=== PATIENT | male | born 1940 | race African-American/Black ===

== ENCOUNTER 2017-05-14 15:27 | Inpatient (IN) | payer OTHER ==
[~2017-05-14] VITALS: Ht 180.3 cm; Wt 101.4 kg
--- NOTE | ~2017-05-14 | EKG ---
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1940 Requested By: Stew Barajas Order Number: [id number] MD: Marquise Maynard Measurements Intervals [place] Rate: 65 P: 26 SC: 168 QRS: -44 QRSD: 106 T: -43 QT: 456 QTc: 475 Interpretive Statements Sinus rhythm Multiple ventricular premature complexes Inferior infarct, old Compared to ECG 05/11/2008 21:47:54 Ventricular premature complex(es) now present Electronically Signed On 05-16-2017 13:16:58 CDT by Marquise Maynard [email or web address] <ELECTRONICALLY SIGNED> By: Marquise Maynard MD, [facility] 05/16/17 1316 1548 1548 Marquise Maynard MD, [facility] /EPI
--- NOTE | ~2017-05-14 | 2DMMODE ---
[facility] [address] [place] [address] 2 D/M-MODE ECHOCARDIOGRAM Name: LAURENT THOAMS Room #: 217-P [facility] IN ..#: [id number] Admission: 05/14/17 Attend Phys: Kamlesh Hawk Discharge: Date of : 44 Date of Service: 05/15/172001 Report #: [id number] THIS REPORT FOR: //name// ADDENDUM APPROVED REPORT Study performed: 05/15/2017 11:48:43 EXAM: Comprehensive 2D, Doppler, and color-flow Echocardiogram Patient Location: Bedside Room #: 217 Status: on-call Other Information Study Quality: Adequate Risk Factors: Cardiac Risk Factors: Smoking Indications Dyspnea Syncope 2D Dimensions LVEF(%): 35.97 (>50%) IVSd: 13.26 (7-11mm) LVOT Diam: 21.00 (18-24mm) LVDd: 48.54 mm PWd: 13.07 (7-11mm) Ascending Ao: 33.35 (22-36mm) LVDs: 40.16 (25-40mm) Aortic Root: 32.56 mm Guo's LVEF: 35.97 % Volumes Left Atrial Volume (Systole) Single Plane 4CH: 51.05 mL Single Plane 2CH: 56.51 mL LA ESV Index: 29.00 mL/m2 Aortic Valve AoV Peak Qasim.: 1.20 m/s AO Peak Gr.: 5.95 mmHg LVOT Max P.57 mmHg LVOT Max V: 0.80 m/s LUIZ Vmax: 2.26 cm2 Mitral Valve E/A Ratio: 0.7 MV Decel. Time: 327.[address] [facility] [address] [place] [address] 2 D/M-MODE ECHOCARDIOGRAM Name: LAURENT THOMAS Room #: 217-[facility] IN [facility]#: [id number] Admission: 05/14/17 Attend Phys: Kamlesh Lomeli [facility] Discharge: Date of : 44 Date of Service: 05/15/172001 Report #: [id number] E Max Qasim.: 0.56 m/s MV A Qasim.: 0.81 m/s MV PHT: 94.84 ms IVRT: 50.75 ms Pulmonary Valve PV Peak Qasim.: 0.77 m/s PV Peak Gr.: 2.37 mmHg Tricuspid Valve RAP Estimate: 5.00 mmHg Left Ventricle The left ventricle is normal size. Mild concentric left ventricular hypertrophy. Left ventricular systolic function is decreased.worse in inf inf septal wall 35 -40% Grade I - abnormal relaxation pattern. Right Ventricle The right ventricle is normal size. The right ventricular systolic function is normal. Atria The left atrium size is normal. Right atrium is borderline dilated. Aortic Valve The aortic valve is normal in structure. No aortic regurgitation is present. There is no aortic valvular stenosis. Mitral Valve The mitral valve is normal in structure. Mild mitral regurgitation. No evidence of mitral valve stenosis. Tricuspid Valve The tricuspid valve is normal in structure. There is no tricuspid valve regurgitation noted. Pulmonic Valve The pulmonary valve is normal in structure. There is no pulmonic valvular regurgitation. Great Vessels The aortic root is normal in size. IVC is normal in size and collapses with >50% inspiration Pericardium [facility] [address] [place] [address] 2 D/M-MODE ECHOCARDIOGRAM Name: LAURENT THOMAS Room #: 217-[facility] IN .R.#: [id number] Admission: 05/14/17 Attend Phys: Kamlesh Hawk Discharge: Date of : 44 Date of Service: 05/15/172001 Report #: [id number] There is no pericardial effusion. <Conclusion> The left ventricle is normal size. Mild concentric left ventricular hypertrophy. Left ventricular systolic function is decreased.worse in inf inf septal wall 40 -45% Grade I - abnormal relaxation pattern. The left atrium size is normal. Right atrium is borderline dilated. The aortic valve is normal in structure. Mild mitral regurgitation. There is no tricuspid valve regurgitation noted. There is no pericardial effusion. 35 -40% 35 -40% <ELECTRONICALLY SIGNED> By: Cabrera Maldonado MD, [facility] 05/15/172001 01 01 Cabrera Maldonado MD, FACC /INF
[~2017-05-14 15:27] MED LIST: COLACE100 MG PO
[2017-05-14 15:30] VITALS: BP 120/56
[2017-05-14 15:53] LABS: HEMOGLOBIN 15.2 gm/dL (14.0-18.0); MCH 30.5 pg (26.0-34.0); MCHC 33.7 g/dL (28.0-37.0); MCV 90.5 fL (80.0-100.0); RBC 4.97 mil/uL (4.50-6.00); RDW 14.3 % (10.5-14.5); WBC 6.4 thou/uL (4.0-11.0)
[2017-05-14 16:04] LABS: ANION GAP 6 mmol/L (7-16); BUN 10 mg/dL (7-18); CALCIUM 8.6 mg/dL (8.5-10.1); CHLORIDE 105 mmol/L (98-107); CO2 27 mmol/L (21-32); CREATININE 1.2 mg/dL (0.7-1.3); GLUCOSE 104 mg/dL (74-106); POTASSIUM 4.5 mmol/L (3.5-5.1); SODIUM 138 mmol/L (136-145)
[2017-05-14 16:07] LABS: APTT 26.6 Seconds (24.5-32.8); INR 1.1
[2017-05-14 16:12] LABS: TROPONIN-I < 0.04 ng/mL (<0.04-0.07)
[2017-05-14 18:21] VITALS: BP 147/81
[2017-05-14 19:19] VITALS: BP 151/87
[2017-05-14] MEDS ORDERED: GABAPENTIN 100100 MG PO (20:11)
[2017-05-14] MEDS ORDERED: CHILDREN'S ASPI81 M1 PO (20:12)
[2017-05-14 20:50] VITALS: BP 138/79
[2017-05-15] VITALS: BP 134/81
[2017-05-15 01:59] LABS: ANION GAP 7 mmol/L (7-16); BUN 8 mg/dL (7-18); CALCIUM 8.4 mg/dL (8.5-10.1); CHLORIDE 104 mmol/L (98-107); CO2 29 mmol/L (21-32); CREATININE 1.1 mg/dL (0.7-1.3); GLUCOSE 109 mg/dL (74-106); POTASSIUM 3.9 mmol/L (3.5-5.1); SODIUM 140 mmol/L (136-145)
[2017-05-15 02:06] LABS: ALBUMIN 2.9 g/dL (3.4-5.0); PHOSPHORUS 3.1 mg/dL (2.5-4.9); TROPONIN-I < 0.04 ng/mL (<0.04-0.07)
[2017-05-15 03:49] VITALS: BP 143/86
[2017-05-15] MEDS ORDERED: FISH OIL 1,001000 M2 PO (07:28)
[2017-05-15] MEDS ORDERED: VITAMIN D310000 UNI1 PO (07:29)
[2017-05-15 08:00] VITALS: BP 147/84
[2017-05-15 11:02] VITALS: BP 108/50
[2017-05-15 16:00] VITALS: BP 122/73
[2017-05-15 19:29] VITALS: BP 116/81
[2017-05-16 03:12] VITALS: BP 135/86
[2017-05-16 08:54] VITALS: BP 129/75
[2017-05-16 10:04] VITALS: BP 129/75
[2017-05-16 11:42] LABS: CHOLESTEROL 157 mg/dL (<200); HDL CHOLESTEROL 32 mg/dL (>40); LDL CHOLESTEROL 110 mg/dL (<100); TC:HDL 4.9 Ratio (Not establshd); TRIGLYCERIDE 76 mg/dL (<150); VLDL 15 mg/dL (<40)
[2017-05-16 12:30] VITALS: BP 129/75
[2017-05-16 16:29] VITALS: BP 135/100
[2017-05-16 19:45] VITALS: BP 123/79
[2017-05-17 03:57] VITALS: BP 140/99; BP 154/89
[2017-05-17 08:03] VITALS: BP 110/67
[2017-05-17 12:48] VITALS: BP 131/79
[2017-05-17 20:45] VITALS: BP 128/57
[2017-05-17 20:58] VITALS: BP 128/57
[2017-05-18] VITALS (7 sets, daily range): BP systolic 95–124; BP diastolic 47–67
[2017-05-18] MEDS ORDERED: CARVEDILOL3.125 MG PO (09:17)
[2017-05-18] MEDS ORDERED: COZAAR 25 MG TA25 M1 PO (09:17)
[2017-05-18] MEDS ORDERED: LIPITOR 20 MG T20 M1 PO (09:17)
== END 2017-05-18 16:16 | disposition home health service (06) | DRG 312 ==
LOC: ER 15:27 → EROBS 17:41 → 2N 17:41
PROVIDERS: Emergency Medicine; Hospitalist; Internal Medicine Cardiovascular Disease
DX: R55 Syncope and collapse (principal); I42.9 Cardiomyopathy, unspecified; I50.20 Unspecified systolic (congestive) heart failure; M19.90 Unspecified osteoarthritis, unspecified site; F17.210 Nicotine dependence, cigarettes, uncomplicated; F12.90 Cannabis use, unspecified, uncomplicated; Z60.2 Problems related to living alone; E78.00 Pure hypercholesterolemia, unspecified; I11.0 Hypertensive heart disease with heart failure; F03.90 Unspecified dementia, unspecified severity, without behavioral disturbance, psychotic disturbance, mood disturbance, and anxiety; Z79.82 Long term (current) use of aspirin; Z79.899 Other long term (current) drug therapy; Z71.6 Tobacco abuse counseling
CPT/HCPCS: 10081

== ENCOUNTER 2017-06-01 13:40 | Inpatient (IN) | payer OTHER ==
[~2017-06-01] VITALS: Ht 180.3 cm; Wt 101.2 kg
--- NOTE | ~2017-06-01 | EEG ---
[facility] [place] [address] ELECTROENCEPHALOGRAM Name: LAURENT THOMAS Gonzales Room #: 211-P [facility] IN .R.#: [id number] Admission: 06/01/17 Attend Phys: Arnol Irby DO Discharge: 06/03/17 Date of : 44 Report #: [id number] THIS REPORT FOR: //name// CC: Arnol Bella DATE OF SERVICE: 06/03/2017 This patient is being evaluated for syncope. EEG was done by placing the electrodes by standard 10-20 system of electrode placement. Both referential and sequential montages were used for recording. Background activity in this patient's EEG is about 10 Hz and 25 microvolts. This is symmetrical activity. The patient goes to sleep that is associated with bilaterally symmetrical sleep spindle and vertex sharp waves. Throughout the record, no active epileptiform activity was noticed. IMPRESSION: This patient's EEG is within normal limits. Thank you very much for this referral. By: 1859 42 Morales Peralta MD /nt
--- NOTE | ~2017-06-01 | EKG ---
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1940 Requested By: Stew Barajas Order Number: [id number] MD: Marquise Maynard Measurements Intervals [place] Rate: 60 P: 15 W[place]: 148 QRS: -37 QRSD: 103 T: -48 QT: 429 QTc: 429 Interpretive Statements Sinus rhythm Left axis deviation Anteroseptal infarct, old Nonspecific T abnormalities, inferior and lateral lds Compared to ECG 05/14/2017 15:48:58 Ventricular premature complex(es) no longer present Electronically Signed On 06-02-2017 16:57:40 CDT by Marquise Maynard [email or web address] <ELECTRONICALLY SIGNED> By: Marquise Maynard MD, [facility] 06/02/17 1657 1359 1359 Marquise Maynard MD, [facility] /EPI
[~2017-06-01 13:40] MED LIST changes: +CARVEDILOL3.125 MG PO; +CHILDREN'S ASPI81 M1 PO; +COZAAR 25 MG TA25 M1 PO; +FISH OIL 1,001000 M2 PO; +GABAPENTIN 100100 MG PO; +LIPITOR 20 MG T20 M1 PO; +VITAMIN D310000 UNI1 PO
[2017-06-01 13:41] VITALS: BP 116/65
[2017-06-01 14:08] LABS: HEMATOCRIT 41.6 % (42.0-52.0); MCHC 33.5 g/dL (28.0-37.0); MCV 89.4 fL (80.0-100.0); RBC 4.66 mil/uL (4.50-6.00); RDW 13.8 % (10.5-14.5); WBC 6.5 thou/uL (4.0-11.0)
[2017-06-01 14:11] LABS: ANION GAP 4 mmol/L (7-16); BUN 10 mg/dL (7-18); CALCIUM 8.6 mg/dL (8.5-10.1); CHLORIDE 105 mmol/L (98-107); CO2 31 mmol/L (21-32); CREATININE 1.1 mg/dL (0.7-1.3); GLUCOSE 116 mg/dL (74-106); POTASSIUM 5.1 mmol/L (3.5-5.1); SODIUM 140 mmol/L (136-145)
[2017-06-01 14:22] LABS: APTT 26.6 Seconds (24.5-32.8); INR 1.1; PROTIME 10.8 Seconds (9.3-11.4); TROPONIN-I < 0.04 ng/mL (<0.04-0.07)
[2017-06-01 16:36] VITALS: BP 116/65
[2017-06-01 17:28] VITALS: BP 124/83
[2017-06-01 19:08] VITALS: BP 125/75
[2017-06-01] MEDS ORDERED: DULCOLAX5 MG PO (20:51)
[2017-06-01 23:03] VITALS: BP 118/54
[2017-06-02] VITALS (8 sets, daily range): BP systolic 116–145; BP diastolic 68–89
[2017-06-02 03:06] LABS: ABSOLUTE NEUTROPHILS 3.6 thou/uL (1.4-8.2); BASOPHILS 0.4 % (0.0-2.0); EOSINOPHILS 3.2 % (0.0-3.0); HEMATOCRIT 42.3 % (42.0-52.0); HEMOGLOBIN 13.9 gm/dL (14.0-18.0); LYMPHOCYTES 27.6 % (24.0-44.0); MCH 29.5 pg (26.0-34.0); MCHC 32.9 g/dL (28.0-37.0); MCV 89.6 fL (80.0-100.0); PLATELET COUNT 250 thou/uL (150-400); POLYS 57.8 % (36.0-66.0); RBC 4.72 mil/uL (4.50-6.00); RDW 13.3 % (10.5-14.5); WBC 6.3 thou/uL (4.0-11.0)
[2017-06-02 03:08] LABS: CALCIUM 8.6 mg/dL (8.5-10.1); CREATININE 1.1 mg/dL (0.7-1.3); POTASSIUM 4.3 mmol/L (3.5-5.1)
[2017-06-02 03:13] LABS: MANUAL DIFF NO
[2017-06-02 09:37] LABS: FOLIC ACID 4.6 ng/mL (8.6-58.9)
[2017-06-02 14:12] LABS: FREE T4 1.12 ng/dL (0.82-1.77)
[2017-06-03] VITALS (7 sets, daily range): BP systolic 106–130; BP diastolic 64–76
[2017-06-03 01:11] LABS: GLYCOHEMOGLOBIN (HGB A1C) 5.2 % (4.8-5.6)
[2017-06-03] MEDS ORDERED: FOLIC ACID1 MG PO (10:04)
[2017-06-03] MEDS ORDERED: B-12500 MCG PO (10:04)
[2017-06-05 17:06] LABS: ALPHA TOCOPHEROL 5.6 mg/L (5.3-17.5)
== END 2017-06-03 17:59 | disposition home health service (06) | DRG 74 ==
LOC: ER 13:40 → 2N 15:22 → EROBS 15:22 → 2N 16:14
PROVIDERS: Emergency Medicine; Family Medicine; Psychiatry & Neurology Neurology
DX: G90.8 Other disorders of autonomic nervous system (principal); I42.9 Cardiomyopathy, unspecified; I95.1 Orthostatic hypotension; S09.90XA Unspecified injury of head, initial encounter; M19.90 Unspecified osteoarthritis, unspecified site; F17.210 Nicotine dependence, cigarettes, uncomplicated; W18.39XA Other fall on same level, initial encounter; E78.00 Pure hypercholesterolemia, unspecified; F03.90 Unspecified dementia, unspecified severity, without behavioral disturbance, psychotic disturbance, mood disturbance, and anxiety; E78.5 Hyperlipidemia, unspecified; Z79.899 Other long term (current) drug therapy; Y93.89 Activity, other specified; Y92.89 Other specified places as the place of occurrence of the external cause; Y99.8 Other external cause status
CPT/HCPCS: 10081

== ENCOUNTER 2018-12-17 22:30 | Inpatient (IN) | payer OTHER ==
[~2018-12-17] VITALS: Ht 185.4 cm; Wt 85.3 kg
--- NOTE | ~2018-12-17 | HC ---
[facility] [place] [address] CONSULTATION Name: MARTHALAURENT Gonzales Room #: 247-P ADM IN M.R.#: [id number] Admission: 12/17/18 ������������������ Attend Phys: Jaskaran Weller MD Discharge: ������������������ Date of : 44 Report #: [id number] THIS REPORT FOR: //name// CC: Nanci Jacobo DATE OF SERVICE: 12/18/2018 REASON FOR CONSULTATION: Elevated potassium. HISTORY OF PRESENT ILLNESS: The details of the history of present illness were obtained from the medical chart as the patient is currently having acute mental status issue. He presented from his nursing facility yesterday with mental status issues. There is a mention that the patient had been in the [facility] recently with pneumonia and leukocytosis. On arrival to the Emergency Room, the patient was found to have a white blood cell count of 43.9. He was also found to have a potassium of 7 with a creatinine of 2.3. The patient had normal kidney function back in 2017. Unfortunately, the [facility] medical records are not available at this point. PAST MEDICAL HISTORY: Per previous medical records. 1. Syncopal episode. 2. Arthritis. 3. Spinal surgery. 4. Neuropathy. 5. Dementia. 6. Hyperlipidemia. FAMILY HISTORY: Unobtainable given the patient's mental status. SOCIAL HISTORY: He is from the [employer] [facility]. No other details available. OTHER MEDICAL HISTORY: Cardiomyopathy with an ejection fraction of around 35%. MEDICATIONS: Listed amongst his medications: 1. Atorvastatin. 2. Aspirin. 3. Folic acid. REVIEW OF SYSTEMS: Completely unobtainable given the patient's mental status. PHYSICAL EXAMINATION: [facility] [address] [place] [address] CONSULTATION Name: MARTHALAURENT Gonzales Room #: 247-P [facility] IN ..#: [id number] Admission: 12/17/18 ������������������ Attend Phys: Jaskaran Weller MD Discharge: ������������������ Date of : 44 Report #: [id number] GENERAL: Disoriented to place, time, and person. VITAL SIGNS: Temperature 36.8, blood pressure 102/58. HEAD AND NECK: No jugular venous distention. CHEST: Rhonchi bilaterally. CARDIOVASCULAR: No rub. ABDOMEN: Soft, nontender. LOWER EXTREMITIES: No edema. LABORATORY DATA: White blood cell count 44,000. Sodium 136, potassium 5.7, calcium 8.0. Blood gas with a pH of 7.1 and a pCO2 of 68, down from 82. ASSESSMENT, IMPRESSION AND PLAN: 1. Acute kidney injury. 2. Hyperkalemia. 3. Leukocytosis. 4. Lung mass. 5. Chronic obstructive pulmonary disease with respiratory failure. 6. CO2 narcosis. 7. Thrombocytosis. 8. Respiratory acidosis. Currently, the patient is being maintained on CPAP. This should help his overall breathing status. Hyperkalemia is likely related to his leukocytosis and acute kidney injury. I will start the appropriate investigation. This has trended nicely to around 5.7. I will retreat. 9. Keep on IV fluid. 10. Obtain his medical records from [facility] given his chest x-ray finding. 11. Treat for postobstructive pneumonitis. 12. We will continue to follow along. ��������������������������������������������� ���������������������������������������� By: ��������������������������������������������� 0853 1946 Nanci Porras MD /nt
[~2018-12-17 22:30] MED LIST changes: +B-12500 MCG PO; +DULCOLAX5 MG PO; +FOLIC ACID1 MG PO
[2018-12-17 22:31] VITALS: BP 107/56
[2018-12-17 22:53] LABS: HEMATOCRIT 32.9 % (42.0-52.0); HEMOGLOBIN 10.7 gm/dL (14.0-18.0); MCH 27.3 pg (26.0-34.0); MCHC 32.4 g/dL (28.0-37.0); MCV 84.5 fL (80.0-100.0); PLATELET COUNT 522 thou/uL (150-400); RDW 15.2 % (10.5-14.5)
[2018-12-17 22:59] LABS: CALCIUM 8.5 mg/dL (8.5-10.1); CREATININE 2.3 mg/dL (0.7-1.3)
[2018-12-17 23:00] LABS: WBC 41.5 thou/uL (4.0-11.0)
[2018-12-17 23:08] LABS: ALBUMIN 2.4 g/dL (3.4-5.0); MAGNESIUM 1.8 mg/dL (1.8-2.4); TOTAL BILIRUBIN 0.4 mg/dL (<0.1-1.0); TOTAL PROTEIN 9.2 g/dL (6.4-8.2); TROPONIN-I 0.08 ng/mL (<0.06)
[2018-12-17 23:12] LABS: APTT 25.7 Seconds (24.5-32.8); INR 1.3; PROTIME 13.1 Seconds (9.3-11.4)
[2018-12-17 23:28] LABS: ABSOLUTE NEUTROPHILS 32.4 thou/uL (1.4-8.2)
[2018-12-17 23:30] LABS: PLATELET ESTIMATE MARKEDLY INCREASED; POLYCHROMASIA OCCASIONAL
[2018-12-17 23:41] LABS: URINE BILIRUBIN NEGATIVE (Negative); URINE BLOOD NEGATIVE (Negative); URINE CLARITY CLOUDY; URINE COLOR YELLOW; URINE GLUCOSE-RANDOM* NEGATIVE (Negative); URINE KETONES NEGATIVE (Negative); URINE LEUKOCYTES-REFLEX NEGATIVE (Negative); URINE NITRITE-REFLEX NEGATIVE (Negative); URINE PROTEIN (DIPSTICK) 1+ (Negative); URINE SPECIFIC GRAVITY >= 1.030 (1.005-1.035); URINE UROBILINOGEN 0.2 E.U./dl (0.2-1.0)
[2018-12-17 23:58] VITALS: BP 117/56
[2018-12-18] VITALS (206 sets, daily range): BP systolic 82–231; BP diastolic 41–152
--- NOTE | 2018-12-18 00:30 | NUR ---
ADMISSION NOTE: PT ARRIVED ON UNIT WITH THE ASSIST OF NIKHIL SHAW, IV FLUIDS RUNNING IN RAC. PT ABLE TO TELL ME HIS NAME AND BIRTHDAY, BUT DISORIENTED TO ALL OTHER QUESTIONS, ABLE TO FOLLOW ONE COMMAND SQUEEZE MY HANDS BUT DID NOT FOLLOW ANY OTHER COMMANDS. PT ST ON THE MONITOR, AFEBRILE, 2/1 PULSES. RHONCHI BILATERAL UPPER LOBE MORE ON THE LEFT SIDE, SATS IN THE HIGH 90'S, PT FIRST PLACED ON 6L NC, ABG RETRIEVED SHOWED RESPIRATORY ACIDOSIS, PT PUT ON BIPAP PER ORDERS. DAUGHTER (DPOA) CALLED TO TELL PT THAT HE IS IN THE ICU AND TO GIVEN UPDATES. WILL CONTINUE TO FOLLOW ORDERS AND IMPLEMENT.
[2018-12-18] MEDS ORDERED: CALCIUM 600 +1 EAC1 PO (02:53)
[2018-12-18] MEDS ORDERED: DOXYCYCLINE 10100 MG PO (02:53)
[2018-12-18] MEDS ORDERED: NEURONTIN 300300 M1 PO (02:54)
[2018-12-18] MEDS ORDERED: NIACIN 100MG T100 M1 PO (02:55)
[2018-12-18] MEDS ORDERED: IPRAT-ALBUT 0.5-3 ML INH (02:55)
[2018-12-18] MEDS ORDERED: LIPITOR10 MG PO (02:57)
[2018-12-18] MEDS ORDERED: VITAMIN B COMP1 EACH PO (02:57)
[2018-12-18 03:18] LABS: BE(vivo) -9.4 mmol/L (-2 to +3); sO2 73.2 % (92.0-98.0)
[2018-12-18 03:19] LABS: PCO2 82.9 mmHg (35.0-45.0); PO2 55.9 mmHg (80.0-100.0); pH 7.042 (7.360-7.450)
[2018-12-18 04:45] LABS: BE(vivo) -9.2 mmol/L (-2 to +3); HCO3 20.8 mmol/L (22.0-26.0); PO2 133.4 mmHg (80.0-100.0); sO2 97.5 % (92.0-98.0)
[2018-12-18 04:46] LABS: PCO2 68.3 mmHg (35.0-45.0); pH 7.102 (7.360-7.450)
[2018-12-18 05:18] LABS: HEMATOCRIT 31.7 % (42.0-52.0); HEMOGLOBIN 9.9 gm/dL (14.0-18.0); MCHC 31.2 g/dL (28.0-37.0)
[2018-12-18 05:19] LABS: MCH 27.2 pg (26.0-34.0); MCV 87.2 fL (80.0-100.0); RBC 3.63 mil/uL (4.50-6.00); RDW 15.6 % (10.5-14.5)
[2018-12-18 05:21] LABS: WBC 43.9 thou/uL (4.0-11.0)
[2018-12-18 05:28] LABS: CREATININE 2.1 mg/dL (0.7-1.3); POTASSIUM 5.7 mmol/L (3.5-5.1)
[2018-12-18 09:02] LABS: BE(vivo) -8.6 mmol/L (-2 to +3); HCO3 21.8 mmol/L (22.0-26.0); PO2 126.5 mmHg (80.0-100.0); sO2 97.1 % (92.0-98.0)
[2018-12-18 09:06] LABS: PCO2 73.3 mmHg (35.0-45.0); pH 7.091 (7.360-7.450)
--- NOTE | 2018-12-18 10:58 | EKG ---
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1940 Requested By: Charles Matthews Order Number: [id number] MD: Maury May Measurements Intervals [place] Rate: 103 P: 71 ID: [id number] QRS: -42 QRSD: 113 T: 72 QT: 343 QTc: 449 Interpretive Statements Sinus tachycardia Left ventricular hypertrophy Anterior Q waves, possibly due to LVH Baseline wander in lead(s) V2 Compared to ECG 06/01/2017 13:59:01 Left ventricular hypertrophy now present Sinus rhythm no longer present Left-axis deviation no longer present T-wave abnormality no longer present Electronically Signed On 12-18-2018 10:58:43 [employer]EL[employer] by Maury May [email or web address] ��������������������������������������������� <ELECTRONICALLY SIGNED> ���������������������������������������� By: Maury May MD ��������������������������������������������� 12/18/18 1058 36 36 Maury May MD /EPI
[2018-12-18 12:39] LABS: HEMATOCRIT 28.5 % (42.0-52.0); MCH 27.4 pg (26.0-34.0); MCHC 31.6 g/dL (28.0-37.0); MCV 86.6 fL (80.0-100.0); RBC 3.3 mil/uL (4.50-6.00); RDW 15.3 % (10.5-14.5); WBC 39.1 thou/uL (4.0-11.0)
[2018-12-18 12:45] LABS: BE(vivo) -6.8 mmol/L (-2 to +3); HCO3 22.1 mmol/L (22.0-26.0); PCO2 62.2 mmHg (35.0-45.0); pH 7.168 (7.360-7.450); sO2 97.5 % (92.0-98.0)
[2018-12-18 15:21] LABS: HCO3 21.1 mmol/L (22.0-26.0); PCO2 43.2 mmHg (35.0-45.0); PO2 146.9 mmHg (80.0-100.0); sO2 98.7 % (92.0-98.0)
[2018-12-18 15:22] LABS: pH 7.306 (7.360-7.450)
--- NOTE | 2018-12-18 16:34 | NUR ---
OK PER RENEE EVANS TO GIVE PATIENT INFORMATION TO KISHAN-DAUGHTER.
--- NOTE | 2018-12-18 17:14 | NUR ---
WATCH SENT HOME WITH DAUGHTER/DPCHRISTOPHER EVANS.
--- NOTE | 2018-12-18 19:54 | NUR ---
ASSUMED CARE AT 0700. PT ONLY SQUEEZED HANDS TO COMMAND. PT WAS INTUBATED TODAY. PICC LINE PLACED IN R IJ. PLACEMENT OF PICC AND ET CONFIRMED BY CHEST XRAY. 2 DAUGHTERS, NATHAN AND KISHAN VISTED PT TODAY. PT STARTED ON PROPOFOL GTT AND LEVOPHED GTT POST INTUBATION PER ORDER.
--- NOTE | 2018-12-18 20:31 | NUR ---
VASCULAR ACCESS CONSULTED FOR A CL FOR THIS PT FOR SEPSIS IN THE ICU, PT IS CKD3 AND A 5FRTLPICC WAS PLACED IN HIS RT IJ X1 ATTEMPT. LINE RELEASED TO RN FOR USE WHEN CXR CONFIRMED TIP PLACEMENT. SEE INSERTION NOTES FOR DETAILS
[2018-12-19] VITALS (59 sets, daily range): BP systolic 95–138; BP diastolic 48–76
[2018-12-19 05:58] LABS: HEMATOCRIT 26.5 % (42.0-52.0); HEMOGLOBIN 8.5 gm/dL (14.0-18.0); MCH 27.4 pg (26.0-34.0); MCHC 32.2 g/dL (28.0-37.0); MCV 85.1 fL (80.0-100.0); RBC 3.12 mil/uL (4.50-6.00); RDW 15.1 % (10.5-14.5); WBC 29.5 thou/uL (4.0-11.0)
[2018-12-19 06:08] LABS: ALBUMIN 1.8 g/dL (3.4-5.0); CALCIUM 7.9 mg/dL (8.5-10.1); CREATININE 2.1 mg/dL (0.7-1.3); PHOSPHORUS 3.1 mg/dL (2.5-4.9); POTASSIUM 5.4 mmol/L (3.5-5.1)
--- NOTE | 2018-12-19 06:12 | NUR ---
ASSUMED CARE @ 1900 12/18/18, PT ASSESSMENT AND VSS COMPLETE PER ICU PROTOCOL, PT ON THE VENT SEDATED WITH PROPOFOL GTT. PT DID NOT FOLLOW COMMANDS DURING THIS SHIFT. PT SR-ST DURING THE SHIFT, LEVO TURNED OFF AT 0000 12/19/18, MAP HAD MAINTAINED ABOVE 60 EVER SINCE, PT AFEBRILE. PT ON THE VENT 600/18//, SATS HIGH 90'S-100. OG PLACED DURING THIS SHIFT, CHEST XRAY TAKEN, AWAITING CONFIRMATION OF RESULTS, CLAMPED AT THIS TIME. BS MONITORED Q6H, NO INTERVENTION NEEDED. LI IN PLACE, OUTPUT MONITORED. RESTRAINTS IN PLACE, TO PROTECT PT AND AVOID PT FROM EXTUBATING HIMSELF, PT DOES REACH FOR TUBE WHEN RESTRAINTS RELEASED. BATH GIVEN DURING THE SHIFT, NO COMPLICATIONS NOTED. PLAN OF CARE- CONTINUE TO MONITOR.
--- NOTE | 2018-12-19 14:22 | NUR ---
PATIENT REMAINS INTUBATED AND SEDATED. WITH SEDATION IS LIFTED PATIENT IS ABLE TO ANSWER YES/NO QUESTIONS AND FOLLOW COMMANDS. PATIENT IS PLEASANT AND COOPERATIVE WITH CARES. DENIES PAIN. DENIES SOA. PATIENT TAKEN TO CT SCAN TODAY AND TOLERATED IT WELL. DR LENNON WOULD LIKE TO SPEAK TO FAMILY ABOUT THE CT SCAN RESULTS. NATHAN HAS BEEN MADE AWARE AND STATES SHE WILL BE UP AFTER WORK. PATIENT CONTINUES ON PROPOFOL FOR VENT MANAGEMENT. NO OTHER CONCERNS AT THIS TIME, WILL CONTINUE TO MONITOR AND CARE PER PLAN OF CARE.
--- NOTE | 2018-12-19 18:42 | HC ---
[facility] [place] [address] CONSULTATION Name: MARTHALAURENT Gonzales Room #: 247-P [facility] IN M.R.#: [id number] Admission: 12/17/18 ������������������ Attend Phys: Lei Peterson MD Discharge: ������������������ Date of : 44 Report #: [id number] THIS REPORT FOR: //name// CC: Nanci Jacobo REFERRING PHYSICIAN: Dr. Peterson REASON FOR REFERRAL: Acute respiratory failure. HISTORY OF PRESENT ILLNESS: The patient is a 78-year-old -[place] male who was brought to the Emergency Room with a diagnosis of pneumonia. A pulmonary consultation was requested. The patient is a resident of the [facility]. According to records, blood work was performed earlier yesterday. WBC was said to be 43,900. Potassium was 7.4. Family, daughter states that the patient was recently seen at [facility]. He was felt to have an abnormal chest x-ray, questionable left upper lobe lung mass. Recent chest x-ray showed left upper lobe density, possible pneumonia. The patient was previously treated with antibiotics due to leukocytosis and abnormal chest x-ray. The patient was to have an outpatient followup there sometime soon. From [facility], he was discharged with Augmentin and doxycycline. His creatinine was abnormal at 1.6 on discharge. In the ER, the patient was alert and able to give history. He was hypoxic. His hyperkalemia was treated with insulin as directed by the Renal service. His daughter's name is Angelica who is the DPOA. Her cell number is [phone]. Overnight, the patient became more hypoxic. Early this morning around 3:00 a.m., BiPAP was placed. According to the RN, his mental status deteriorated where he became less responsive. A pulmonary consultation was requested this morning. At this time, the patient is arousable, but appears somnolent. He is tolerating the BiPAP. The patient was electively intubated due to acute hypercapnic hypoxic respiratory failure and mental status change. PAST MEDICAL HISTORY: As mentioned above. He was recently seen at [facility] for an abnormal chest x-ray showing left upper lobe density, questionable lung mass, treated for pneumonia; chronic kidney disease; past [facility] [address] [place] [address] CONSULTATION Name: MARTHALAURENT Gonzales Room #: 247-P [facility] IN ..#: [id number] Admission: 12/17/18 ������������������ Attend Phys: Lei Peterson MD Discharge: ������������������ Date of : 44 Report #: [id number] history of spinal neuropathy; osteoarthritis, spinal surgery; spinal stenosis with lumbar radiculopathy; COPD and hypertension. PAST SURGICAL HISTORY: As mentioned above including tonsillectomy, left shoulder surgery, left hip surgery for foreign body and laminectomy as mentioned above. ALLERGIES: None to medications. HOME MEDICATIONS: Reviewed. This includes Lipitor, Coreg, Cozaar, vitamin B supplements and folic acid. FAMILY HISTORY: Noncontributory. SOCIAL HISTORY: The patient continues to smoke about a pack a day. 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 He smokes about half a pack a day for the last 63 years. He drinks alcohol regularly. REVIEW OF SYSTEMS: Deferred as the patient is intubated. PHYSICAL EXAMINATION: GENERAL: He is arousable, but quite somnolent. VITAL SIGNS: Temperature is 99.7 degrees Fahrenheit, pulse is 110, respiratory rate is 20, blood pressure 110/65 mmHg and saturation 98%. HEENT: Normocephalic and atraumatic. NECK: Supple without any lymphadenopathy or thyromegaly. CHEST: Breath sounds are mild coarse bilaterally. Air movements are decreased. Few scattered crackles. Mild wheezes are noted in the bases. CARDIOVASCULAR: Normal S1 and S2. No murmurs or gallop. There is no JVD. There is no carotid bruit. Pulses are 2+/4+ bilaterally. ABDOMEN: Soft, nontender, no organomegaly or masses felt. GENITOURINARY: Deferred. RECTAL: Deferred. EXTREMITIES: There is no edema, cyanosis or clubbing. LABORATORY DATA: Portable chest x-ray shows left hilar/superior mediastinal density/infiltrates, moderate left lower lobe infiltrate seen. ET tube is approximately 2 cm above the karina. Central line is in the appropriate position. Chest x-ray from 06/01/2017 showed no evidence of lung mass. Sodium 136, potassium 5.7, chloride 106, CO2 24, BUN is 29 and creatinine is 2.1. Liver enzymes are grossly unremarkable. WBC 41,500 on admission, hemoglobin 10.7 and platelets are elevated, 14% bandemia. Arterial blood gas early this morning showed pH 7.04, pCO2 of 82, pO2 of 55 on 2 liters of O2. Follow arterial blood gas show pH 7.30, pCO2 of 43, pO2 146 on FiO2 of 40%. [facility] [address] [place] [address] CONSULTATION Name: LAURENT THOMAS Room #: 247-P ADM IN Freddie.#: [id number] Admission: 12/17/18 ������������������ Attend Phys: Lei Peterson MD Discharge: ������������������ Date of : 44 Report #: [id number] IMPRESSION: 1. Acute hypercapnic hypoxic respiratory failure in this 78-year-old white male. His chest x-ray shows previously known left hilar upper lobe density/infiltrates. He has profound leukocytosis with bandemia. The patient has a history of chronic kidney disease along with hyperkalemia on admission. Suspect infectious process involving the left upper lobe. With profound leukocytosis, we will need to consider other atypical infectious processes or even hematologic abnormalities. 2. Left upper lobe density/infiltrates. We will try to obtain records from [facility]. I will proceed with CT imaging in the morning. 3. History of chronic kidney disease, hyperkalemia, with acute acidosis mostly respiratory. 4. History of osteoarthritis, spinal stenosis with lumbar radiculopathy, laminectomy. 5. History of chronic obstructive pulmonary disease, severity unknown. 6. Ongoing tobacco use. 7. Hypertension. 8. Encephalopathy, toxic due to presumed severe sepsis, history of mild dementia. RECOMMENDATIONS: Proceed with intubation as mentioned above. Continue mechanical ventilation. Broad spectrum antibiotics to cover for nosocomial infection due to presumed recent admission. CT imaging of the chest to evaluate left upper lobe abnormalities. Would also recommend records from [facility] for further review. DVT and GI prophylaxis recommended. Broad spectrum antibiotics as well. Thank you for this consultation. Critical care 1 hour. ��������������������������������������������� <ELECTRONICALLY SIGNED> ���������������������������������������� By: Derek Mansfield MD ��������������������������������������������� 12/19/18 1842 1624 [id number] Derek Mansfield MD /nt
[2018-12-20] VITALS (35 sets, daily range): BP systolic 122–148; BP diastolic 57–88
[2018-12-20 05:09] LABS: BE(vivo) -8.9 mmol/L (-2 to +3); HCO3 16.3 mmol/L (22.0-26.0); PCO2 32.4 mmHg (35.0-45.0); PO2 130.2 mmHg (80.0-100.0); sO2 98.4 % (92.0-98.0)
[2018-12-20 05:10] LABS: pH 7.319 (7.360-7.450)
[2018-12-20 05:41] LABS: HEMATOCRIT 26.7 % (42.0-52.0); HEMOGLOBIN 8.5 gm/dL (14.0-18.0); MCHC 31.9 g/dL (28.0-37.0); MCV 84.9 fL (80.0-100.0); PLATELET COUNT 367 thou/uL (150-400); RBC 3.15 mil/uL (4.50-6.00); RDW 15.4 % (10.5-14.5); WBC 25.3 thou/uL (4.0-11.0)
[2018-12-20 06:07] LABS: ALBUMIN 1.9 g/dL (3.4-5.0); CREATININE 1.8 mg/dL (0.7-1.3); PHOSPHORUS 3.7 mg/dL (2.5-4.9)
--- NOTE | 2018-12-20 06:13 | NUR ---
ASSUMED CARE 1900 12/19/18, PT ASSESSMENTS AND VSS COMPLETE PER ICU PROTOCOL. PT ON PROPOFOL GTT FOR SEDATION, ABLE TO FOLLOW SOME COMMANDS INTERMITTENTLY AEB SQUEEZING HANDS, AND ABLE TO NOD YES APPROPRIATELY AT TIMES. PT SR MOST OF THE NIGHT, SOME EDEMA NOTED, SEE PROCESS INTERVENTIONS FOR SPECIFICS, PT AFEBRILE MOST OF THE NIGHT. PT ON THE VENT 600/18/5/30%, SATS IN THE HIGH 90'S, CRITICAL PH IN ABG THIS AM, DR LENNON MADE AWARE. OG IN PLACE TO LIS MOST OF THE SHIFT, CLAMPED AFTER MEDS ADMINISTERED. LI IN PLACE, GOP NOTED. PT STILL IN RESTRAINTS FOR PROTECTION, PT EDUCATED THROUGHOUT THE SHIFT ABOUT IMPORTANCE AND REASON FOR USE. PT GIVEN A BATH DURING SHIFT, NO COMPLICATIONS NOTED. RN WAS ABLE TO GET RINGS OFF FINGERS, RINGS PLACED IN A TRANPARENT BAG, LABELLED WITH PT ID AND WILL COMMUNICATE TO DAY SHIFT TO GIVE TO FAMILY. PLAN OF CARE- WILL CONT TO MONITOR.
[2018-12-20 07:25] LABS: ABSOLUTE NEUTROPHILS 23.5 thou/uL (1.4-8.2); PROMYELOCYTES 1 %
--- NOTE | 2018-12-20 13:28 | NUR ---
[facility]LE CHERRY AND SHE RECEIVED UPDATE. DCP TO FOLLOW.
--- NOTE | 2018-12-20 16:35 | NUR ---
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 S/W DTMireya EVANS BY PHONE. SHE TELLS ME PT IS ABLE TO WALK SOME AND ALSO USES A WC TO GET AROUND THE FACILITY. PT NEEDS ASSIST WITH ADLS. PATTI EVANS STATES PLAN WILL BE TO RETURN TO [facility] ONCE MEDICALLY STABLE. FOLLOWING TO ASSIST WITH DC PLANNING.
--- NOTE | 2018-12-20 17:33 | NUR ---
PATIENT REMAINS INTUBATED AND SEDATED. PATIENT IS ABLE TO WAKE UP AND FOLLOW SOME COMMANDS. NO PAIN NOTED. SEDATION DECREASED FOR CPAP TRAIL, HOWEVER PATIENT BECAME TACHYCARDIC AND TACHYPNEIC. CPAP TRAIL CANCELED AND SEDATION TURNED BACK UP. PATIENT IS NOW RESTING QUIETLY. TUBE FEEDING STARTED PER ORDERS AND PATIENT IS TOLERATING IT WELL. PATIENT TURNED Q2H FOR COMFORT AND PRESSURE RELIEF. NO OTHER CONCERNS AT THIS TIME. WILL CONTINUE TO MONITOR AND CARE PER PLAN OF CARE.
[2018-12-21] VITALS (17 sets, daily range): BP systolic 127–159; BP diastolic 67–89
--- NOTE | 2018-12-21 03:50 | NUR ---
ASSUMED CARE OF PATIENT AROUND 1900. PATIENT REMAINS INTUBATED. HI-LOW SUCTION INITIALLY CLOGGED, RT ABLE TO ASSIST IN RESTORING PATENCY. PATIENT ABLE TO WAKE UP ON 25 MCG OF PROPOFOL, UNABLE TO FOLLOW SIMPLE COMMANDS, ATTEMPTS TO MOVE HANDS TOWARD ET, OG AND SUCTION TUBES. BATH GIVEN, PATIENT TOLERATED WELL. NO OTHER ISSUES AT THIS TIME. WILL CONTINUE TO MONITOR.
[2018-12-21 05:50] LABS: ALBUMIN 1.9 g/dL (3.4-5.0); CALCIUM 7.9 mg/dL (8.5-10.1); CREATININE 1.8 mg/dL (0.7-1.3); PHOSPHORUS 3.3 mg/dL (2.5-4.9); POTASSIUM 4.4 mmol/L (3.5-5.1)
[2018-12-21 11:06] LABS: HCO3 19.4 mmol/L (22.0-26.0); PCO2 42.7 mmHg (35.0-45.0); PO2 104.6 mmHg (80.0-100.0); pH 7.275 (7.360-7.450); sO2 97.1 % (92.0-98.0)
--- NOTE | 2018-12-21 12:07 | PATH ---
[facility] [address] [place] [address] PATHOLOGY RPT PROCEDURE Name: LAURENT THOMAS Room #: 247-P [facility] IN ..#: [id number] ������������������ Admission: 12/17/18 ������������������ Date of : 42 Discharge: Report #: [id number] Path Case #: [id number] Note LCA Accession Number: [id number] TESTS RESULT FLAG UNITS REF RANGE LAB Clinician Provided Cytology Information No. of containers..01 Other (Miscellaneous) Source: SPUTUM DIAGNOSIS: 02 SPUTUM NEGATIVE FOR MALIGNANT CELLS. NORMAL BRONCHIAL CELLS AND MACROPHAGES ARE PRESENT. PULMONARY MACROPHAGES (DUST CELLS) ARE PRESENT. REACTIVE SQUAMOUS CELLS ARE PRESENT. FUNGAL ORGANISMS MORPHOLOGICALLY COMPATIBLE WITH "JAMSHID" SPECIES ARE PRESENT. Signed out by: Debora Myers MD, Pathologist NPI- [id number] Performed by: Mathieu Sheth, Spinning Bath Person ([facility]) Gross description: 01 4ML, COLORLESS, CLOUDY /LCS FLAG LEGEND: L-Low Normal,H-High Normal,LL-Alert Low,HH-Alert High <-Panic Low,>-Panic High,A-Abnormal,AA-Critical Abnormal Performed at: [address] [place] [address] Nuno Gallo MD, [address] [address] Debora Myers MD, Specimen Comment: A courtesy copy of this report has been sent to Specimen Comment: [phone]. Specimen Comment: Report sent to Specimen Comment: A duplicate report has been generated due to demographic updates. Performed at: [address], [place], [place] [id number] MD Nuno Gallo MD Phone: [phone]
--- NOTE | 2018-12-21 18:39 | NUR ---
PATIENT INTERMITTENTLY RESTLESS. PROPOFOL FOR PATIENT COMFORT AND VENT MANAGEMENT. SEE TITRATIONS. CPAP TRIAL TODAY PERFORMED. BLOOD GAS RESULTS NOTED TO DR. LENNON. INTAKE AND OUTPUT DOCUMENTED. HE WILL WAKE UP, NOD YES/NO, AND FOLLOW COMMANDS. HE MOVES ALL EXTREMETIES. PLAN OF CARE IS TO CONTINUE TO MONITOR PATIENT VITAL SIGNS Q1 HOUR, ASSESSMENTS Q2-4 HOURS, AND CONTINUE TO TRIAL WEANING ABLE.
[2018-12-22] VITALS (42 sets, daily range): BP systolic 127–159; BP diastolic 61–85
[2018-12-22 06:57] LABS: HEMATOCRIT 27.4 % (42.0-52.0); MCH 27.5 pg (26.0-34.0); MCHC 32.7 g/dL (28.0-37.0); MCV 84.2 fL (80.0-100.0); RBC 3.26 mil/uL (4.50-6.00); RDW 15.5 % (10.5-14.5); WBC 21.4 thou/uL (4.0-11.0)
[2018-12-22 07:14] LABS: APTT 24.4 Seconds (24.5-32.8); INR 1.1; PROTIME 11.8 Seconds (9.3-11.4)
[2018-12-22 07:16] LABS: ALBUMIN 1.9 g/dL (3.4-5.0); CALCIUM 7.9 mg/dL (8.5-10.1); CREATININE 1.5 mg/dL (0.7-1.3); PHOSPHORUS 2.4 mg/dL (2.5-4.9); POTASSIUM 4.6 mmol/L (3.5-5.1)
--- NOTE | 2018-12-22 13:46 | NUR ---
FROM [id number], DR. LENNON PRESENT TO PERFORM BRONCH. PROPOFOL INFUSING AT 25 MCG/KG/MIN. ADDITIONAL PROPOFOL BOLUS 5CC ADMINISTERED PER DR. LENNON'S ORDER WHEN PT WAKING UP AND MOVING HEAD AROUND. DESATED TO 83%, FIO2 PER VENT INCREASED TO 100%, THEN PT'S SATURATION INCREASING TO 100% WITHIN 2-3 MINUTES. PROCEDURE WELL TOLERATED. SPECIMENS SENT PER RESPIRATORY THERAPY.
--- NOTE | 2018-12-22 17:32 | O ---
[facility] [place] [address] OPERATIVE REPORT Name: LAURENT THOMAS Room #: 247-P [facility] IN M.R.#: [id number] Admission: 12/17/18 ������������������ Attend Phys: Lei Peterson MD Discharge: ������������������ Date of : 42 Report #: [id number] THIS REPORT FOR: //name// CC: Nanci Jacobo CLINICAL HISTORY: A 78-year-old white male with a left upper lobe lung mass. A diagnostic bronchoscopy was performed. The patient is currently intubated following recent acute respiratory failure. POSTOPERATIVE DIAGNOSES: Extrinsic compression involving the posterior segment, apical segment of the left upper lobe. No endobronchial lesions seen. DESCRIPTION OF PROCEDURE: Following obtained consent and risks and benefits had been explained to the patient's family, the procedure performed in the ICU. The patient is currently intubated. A 7.5-mm ET tube previously was placed a few days ago. The patient is currently on a Diprivan drip. He was given 5 mL of Diprivan bolus. Vital signs were monitored. Timeout was also performed identifying the patient along with reason for bronchoscopy. Through the previously placed ET tube, a flexible fiberoptic bronchoscope was introduced without difficulty. The distal trachea was unremarkable, karina was normal. Right mainstem bronchus, right upper lobe, right middle lobe and right lower lobe were normal. Left mainstem bronchus was normal. Left upper lobe revealed extrinsic compression involving the posterior segment along with the apical segment of the left upper lobe. The lingula appeared to be normal. Left lower lobe was normal. Brushing x 4 was performed 2 times in each segments. Bronchial wash was performed in both segments. There was minimal bleeding. No complications noted. Saturation did drop briefly to 83%. FiO2 was turned up to 100%. Oxygen saturation promptly improved to greater than 90%. The patient tolerated the procedure well. [facility] [address] [place] [address] OPERATIVE REPORT Name: LAURENT THOMAS Room #: 247-P [facility] IN .R.#: [id number] Admission: 12/17/18 ������������������ Attend Phys: Lei Peterson MD Discharge: ������������������ Date of : 42 Report #: [id number] The cytologic brushing will be sent for cytology. Bronchial wash will be sent for micro along with cytology. ��������������������������������������������� <ELECTRONICALLY SIGNED> ���������������������������������������� By: Derek Mansfield MD ��������������������������������������������� 12/22/18 1732 [id number] Derek Mansfield MD /nt
--- NOTE | 2018-12-22 19:15 | NUR ---
TUBE FEEDING OFF SINCE O700. BRONCH PERFORMED BY DR. LENNON. SEE NOTE FOR DETAILS. JEVITY 1.5 RESTARTED AT 60CC/HR. PROPOFOL CONTINUED FOR SEDATION. SR, TOLERATING VENT, MORPHINE GIVEN FOR LUNG DISCOMFORT POST BRONCH, ADEQUATE URINE OUTPUT. PT PROGRESSING.
[2018-12-23] VITALS (39 sets, daily range): BP systolic 119–160; BP diastolic 57–87
[2018-12-23 04:37] LABS: HEMATOCRIT 28.3 % (42.0-52.0); MCH 26.8 pg (26.0-34.0); MCHC 31.9 g/dL (28.0-37.0); RBC 3.37 mil/uL (4.50-6.00); RDW 15.5 % (10.5-14.5)
[2018-12-23 04:51] LABS: ALBUMIN 1.9 g/dL (3.4-5.0); CALCIUM 7.8 mg/dL (8.5-10.1); CREATININE 1.3 mg/dL (0.7-1.3); PHOSPHORUS 2.6 mg/dL (2.5-4.9); POTASSIUM 4.3 mmol/L (3.5-5.1)
--- NOTE | 2018-12-23 07:20 | NUR ---
Pt A/O x 1-2. Agitation /restlessness at times with attempts to pull lines and tubes. Restraints in place. Adequate urine output. No change in vent settings. VSS. No apparenet distress noted. Bed alarm on. Fall precautions maintained. Call light within reach. Shift change completed with incoming day-shift RN.
[2018-12-23 12:08] LABS: BE(vivo) -2.8 mmol/L (-2 to +3); HCO3 23.7 mmol/L (22.0-26.0); PCO2 48.5 mmHg (35.0-45.0); PO2 106.3 mmHg (80.0-100.0); sO2 97.4 % (92.0-98.0)
[2018-12-23 12:09] LABS: pH 7.306 (7.360-7.450)
--- NOTE | 2018-12-23 12:30 | NUR ---
PT TOLERATED CPAP TRIAL. DR. LENNON PAGED, CALL RETURNED THEN NOTIFIED OF ABG RESULTS. NG TO SUCTION. PROPOFOL 10 MCG/KG/MIN, THEN DC'D. ALLOWING PT TO FULLY BE AWAKE, THEN EXTUBATE PER DR. LENNON'S ORDER.
--- NOTE | 2018-12-23 13:40 | NUR ---
EXTUBATED, PLACED ON 4L/NC, SHALLOW COUGHS, SMALL AMOUNT CLEAR SECRETIONS SUCTIONED, PT SWALLOWING MOST SECRETIONS. PT IN SITTING BED POSITION. ALERT, ORIENTED, PLEASANT.
--- NOTE | 2018-12-23 15:39 | NUR ---
FOLLOWING FOR DC PLANNING. CLINICALINFO REVIEWED. PT ABLE TO BE EXTUBATED TODAY AND CURRENTLY ON 3 L NC O2. NO W/E DC PLANNED. UPDATED TO [place] FROM [facility] ADMISSIONS.
--- NOTE | 2018-12-23 19:00 | NUR ---
PT OUT OF BED, STANDING AT BEDSIDE. WITH 2 RN ASSIST, RETURNED TO BED. PLACED ON BEDPAN. MESSAGE LEFT FOR DR. SALDIVAR REGARDING REQUEST FOR MEDICATION FOR HIS AGITATION AND ATTEMPTS TO GET OUT OF BED. THEN PT SETTLED SPONTANEOUSLY. NO CALL RETURNED AT THIS TIME.
--- NOTE | 2018-12-23 21:12 | NUR ---
Pt is very confuse and doesn't aware of any situation. He has been trying to get out off bed, pulling almaraz cath and central line. I attempted to re-orient him w/o any success. Place pt on restraint. Will notify for order.
[2018-12-24] VITALS (24 sets, daily range): BP systolic 131–160; BP diastolic 70–93
--- NOTE | 2018-12-24 06:52 | NUR ---
Assumed cares of this pt at 0200. He vs and cardiac rhythms remains stable. Continue to be NPO until being seen and eval by Speech. Slowly progressing totoward goals.
[2018-12-24 07:21] LABS: CALCIUM 7.9 mg/dL (8.5-10.1); CREATININE 1.3 mg/dL (0.7-1.3); POTASSIUM 4.9 mmol/L (3.5-5.1)
--- NOTE | 2018-12-24 17:16 | NUR ---
SHIFT SUMMARY: SWALLOW STUDY PERFORMED, ASSISTED WITH LUNCH, MEAL WELL TOLERATED. ALERT TO PERSON, CONFUSED, ATTEMPTING TO GET OUT OF BED DESPITE RILEY WRIST RESTRAINTS, ATIVAN 1 MG IV GIVEN WITH PT EVENTUALLY CALMING. HAD BOWEL MOVEMENT, PARTIAL BATH GIVEN. FAMILY MEMBERS PRESENT FOR A COUPLE OF HOURS TALKING WITH AND PROVIDING SUPPORT TO PT. RESTING QUIETLY AT THIS TIME.
[2018-12-25] VITALS (16 sets, daily range): BP systolic 137–160; BP diastolic 67–95
[2018-12-25 04:16] LABS: HEMATOCRIT 28.9 % (42.0-52.0); HEMOGLOBIN 9.2 gm/dL (14.0-18.0); MCH 26.9 pg (26.0-34.0); MCHC 31.9 g/dL (28.0-37.0); MCV 84.3 fL (80.0-100.0); RBC 3.43 mil/uL (4.50-6.00); RDW 15.6 % (10.5-14.5); WBC 27.4 thou/uL (4.0-11.0)
[2018-12-25 04:33] LABS: CALCIUM 7.9 mg/dL (8.5-10.1); CREATININE 1.3 mg/dL (0.7-1.3); POTASSIUM 4.4 mmol/L (3.5-5.1)
--- NOTE | 2018-12-25 06:00 | NUR ---
PT SLEPT MOST OF NOCT. REMAINS CONFUSED. 1000 CC UO THIS SHIFT. REMAINS IN SINUS RHYTHM. BATHED. WILL CONT TO MONITOR
--- NOTE | 2018-12-25 06:00 | NUR ---
PT REMAINS A CCU OVERFLOW.
--- NOTE | 2018-12-25 11:22 | NUR ---
PT TRANSFERRING TO 3W ROOM 361. DAUGHTER NATHAN NOTIFIED. ALL BELONGINGS PACKED AND READY TO GO
--- NOTE | 2018-12-25 16:47 | NUR ---
ASSUMED PATIENT CARE FROM ICU. A&OX1-2. PATIENT ASKING WHEN THEY CAN GO HOME. PATIENT ON PUREED DIET WITH HONEY THICK LIQUIDS. PATIENT NEED HELP EATING. LI IN PLACE AND CONNECTED TO DD. WAITING PATH REPORT ON LUNG MASS. CLOSE TO DESK. BED ALARM ON. WORKING TOWARD DC GOALS.
--- NOTE | 2018-12-26 04:26 | NUR ---
PT MAKING POOR PROGRESS TOWARDS GOALS. PT PULLLING ON LINES, REMOVED PERIPHERAL IV, PULLING OFF SCD'S, PULLING ON LI, PULLING OXYGEN CANNULA OFF AND POORLY TOOK REDIRECTION. PT UNABLE TO RETAIN INSTRUCTIONS OR VERBALIZE ANY UNDERSTANDING OF THE MEDICAL DEVICES. PT ORIENTED TO NAME AND "HOSPITAL" ONLY. WAS UNABLE TO SAY THE REASONS FOR BEING IN THE HOSPITAL. BL SOFT WRIST RESTRAINTS PLACED PT WAS UNABLE TO RETAIN THE INSTRUCTIONS TO NOT INTERFER WITH MEDICAL EQUIPMENT. DIVERSIONARY ACTIVITIES WERE NOT SUCCESSFUL. CONTINUE TO MONITOR.
[2018-12-26 04:50] VITALS: BP 150/87
[2018-12-26 07:55] VITALS: BP 147/92
--- NOTE | 2018-12-26 11:44 | NUR ---
calvin sent updates to Ceci/mary at [facility]. Let her know they may want to get authorization for skilled. CALVIN sent text to Ceci and Ceci responded she will.
[2018-12-26 12:33] VITALS: BP 147/93
--- NOTE | 2018-12-26 12:48 | NUR ---
SW reviewed chart and spoke with attending physician. Pt was transferred to from ICU and is progressing towards goals for discharge back to [facility]. traffic and transport planner faxed clinical/therapy updates to [place] post-acute liaison for review. Will need insurance authorization if pt returns using his skilled benefit. HUSSEIN left voice message for pt's dtr, Juanis, to provide update and notify of anticipated discharge. HUSSEIN is following to assist as needed with discharge planning.
[2018-12-26 15:49] VITALS: BP 152/87
[2018-12-26 19:35] VITALS: BP 163/84
--- NOTE | 2018-12-26 20:17 | NUR ---
PATIENT CONT ON RESTRAINTS THROUGHT THE DAY. DID ATTEPTED TO TAKE THEM OFF FOR A WHILE BUT EACH TIME HE WILL ATTEPTS TO CLIMB OUT OF THE BED THEN PULL HIS CATHER OR CALL LIGHT. KEEPS ASKING NURSE THAT HE WANTS TO SMOKE. FAMILY VISITED EARLIER AND ROOM SMELLED IF SOMEONE HAS SMOKED. BUT RESIDENT AND FAMILY DENIED SMOKING IN THE ROOM. LI D/MARCUS PATIENT IS NOW MORE AWAKE. WILL CONT WITH PLAN OF CARE.
--- NOTE | 2018-12-27 04:22 | NUR ---
bilateral wrist restraint order renewed due to patient being restless, confused, impulsive. right IJ triple lumen PICC line intact, good blood return. voiding well since Arizmendi catheter dcd. frequently removes nasal cannula. pulse ox remains in low to mid 90s on room air.
[2018-12-27 04:26] VITALS: BP 168/87
[2018-12-27 07:18] VITALS: BP 158/90
--- NOTE | 2018-12-27 10:51 | NUR ---
patient may dc today back to [facility], calvin spoke with brown at [facility] and they can accept patient and will work on authorization.
[2018-12-27 12:25] VITALS: BP 149/76
--- NOTE | 2018-12-27 15:06 | PATH ---
[facility] [address] [place] [address] PATHOLOGY RPT PROCEDURE Name: LAURENT THOMAS Room #: 361-P [facility] IN ..#: [id number] ������������������ Admission: 12/17/18 ������������������ Date of : 42 Discharge: Report #: [id number] Path Case #: [id number] Note LCA Accession Number: [id number] TESTS RESULT FLAG UNITS REF RANGE LAB Clinician Provided Cytology Information No. of containers..01 Other (Miscellaneous) Source: BAL BRIAN DIAGNOSIS: 02 BAL BRIAN INCONCLUSIVE. PULMONARY MACROPHAGES (DUST CELLS) ARE PRESENT. FUNGAL ORGANISMS MORPHOLOGICALLY CONSISTENT WITH "JAMSHID" SPECIES ARE PRESENT. COMMENT, FEW ATYPICAL CELLS ARE SEEN. THIS CASE WAS ALSO SEEN BY DR. RAJENDRA ENRIQUE. Signed out by: 02 Kade Christine MD, Pathologist NPI- [id number] Performed by: 01 Mathieu Sheth, Inbound Ingredient Logistics Specialist ([facility]) Gross description: 01 10ML, WHITE, CLOUDY /LCS FLAG LEGEND: L-Low Normal,H-High Normal,LL-Alert Low,HH-Alert High <-Panic Low,>-Panic High,A-Abnormal,AA-Critical Abnormal Performed at: [address] [place] [address] Nuno Gallo MD, [address] [place] [phone] Kameron Jorge MD, Specimen Comment: A courtesy copy of this report has been sent to Specimen Comment: [phone]. Specimen Comment: Report sent to Performed at: [address] [facility], [place], [place] [id number] MD Nuno Gallo MD Phone: [phone]
--- NOTE | 2018-12-27 15:24 | NUR ---
SW reviewed chart and spoke with nursing and attending physician. Restraints were placed back on pt last evening. Pt remains on IV steroids. retail planner faxed clinical updates to [place] post acute liaison. Plan is for pt to d/c back to [facility] when medically stable. HUSSEIN is following to assist as needed with discharge planning.
--- NOTE | 2018-12-27 16:06 | PATH ---
[facility] [address] [facility] [facility] [place] [address] PATHOLOGY RPT PROCEDURE Name: LAURENT THOMAS Room #: 361-[facility] IN ..#: [id number] ������������������ Admission: 12/17/18 ������������������ Date of : 42 Discharge: Report #: [id number] Path Case #: [id number] Note LCA Accession Number: [id number] TESTS RESULT FLAG UNITS REF RANGE LAB Clinician Provided Cytology Information No. of containers..01 Other (Miscellaneous) Source: [A] 01 BRUSHINGS BRIAN DIAGNOSIS: [A] 02 BRUSHINGS BRIAN POSITIVE FOR MALIGNANT CELLS. COMMENT, POORLY DIFFERENTIATED CELLS ARE SEEN CONSISTENT WITH POORLY DIFFERENTIATED NON SMALL CELL CARCINOMA THIS CASE WAS ALSO REVIEWED BY DR RAJENDRA ENRIQUE WHO AGREES WITH THE ABOVE DIAGNOSIS. DR TAVIA SALDIVAR WAS NOTIFIED OF THE DIAGNOSIS ON 12/27/2018 AT 3PM. Signed out by: 02 Kade Christine MD, Pathologist NPI- [id number] Performed by: 01 Mathieu Sheth, Lending Advisor ([facility]) FLAG LEGEND: L-Low Normal,H-High Normal,LL-Alert Low,HH-Alert High <-Panic Low,>-Panic High,A-Abnormal,AA-Critical Abnormal Performed at: [address] [place] [address] Nuno Gallo MD, [address] [place] [phone] Kameron Jorge MD, Specimen Comment: A courtesy copy of this report has been sent to Specimen Comment: [phone]. Specimen Comment: Report sent to Performed at: [address] [id number] MD Nuno Gallo MD Phone: [phone]
--- NOTE | 2018-12-27 16:06 | PATH ---
[facility] [address] [place] [address] PATHOLOGY RPT PROCEDURE Name: LAURENT THOMAS Room #: 361-P ADM IN .R.#: [id number] ������������������ Admission: 12/17/18 ������������������ Date of : 42 Discharge: Report #: [id number] Path Case #: [id number] Note LCA Accession Number: [id number] TESTS RESULT FLAG UNITS REF RANGE LAB Clinician Provided Cytology Information No. of containers..01 Other (Miscellaneous) Source: [A] 01 BRUSHTIP BRIAN DIAGNOSIS: [A] 02 BRUSHTIP BRIAN POSITIVE FOR MALIGNANT CELLS. POORLY DIFFERENTIATED MALIGNANT CELLS ARE PRESENT. COMMENT, THE FINDINGS ARE CONSISTENT WITH POORLY DIFFERENTIATED NON SMALL CELL CARCINOMA. A CELL BLOCK IS NOT PRESENT TO DO IMMUNOPEROXIDASE STAIN. THIS CASE WAS ALSO REVIEWED BY DR. RAJENDRA ENRIQUE AND DISCUSSED WITH DR TAVIA SALDIVAR ON 12/27/2018 AT 3PM. T Signed out by: 02 Kade Christine MD, Pathologist NPI- [id number] Performed by: 01 Mathieu Sheth, Photoradio Operator ([facility]) FLAG LEGEND: L-Low Normal,H-High Normal,LL-Alert Low,HH-Alert High <-Panic Low,>-Panic High,A-Abnormal,AA-Critical Abnormal Performed at: [address] [phone] Nuno Gallo MD, [address] [address] Kameron Jorge MD, Performed at: [address] [place] [id number] MD Nuno Gallo MD Phone: [phone]
[2018-12-27 16:35] VITALS: BP 150/80
--- NOTE | 2018-12-27 19:56 | NUR ---
PT ASSESSED AT START OF SHIFT. PT CONFUSED BUT ORIENTED TO SELF. RILEY SOFT WRIST RESTRAINTS ON THIS AM BUT DC'D AT 1200 PER ORDER. PT FREQUENTLY MONITORED AND BED AND CHAIR ALARM ON ALL SHIFT UNTIL 1800 WHEN PT SET UP FOR MEAL TRAY BED ALARM NOT RESET. AT 1808 PT DID TRY TO GET OUT OF BED AND WAS FOUND BY LAB SPECIALIST MINUTES LATER SITTING ON THE FLOOR. EVENT NOT WITNESSED BY STAFF. PT ASSESSED, NO INJURY NOTED AND MENTAL STATUS REMAINS CONFUSED BEFORE. SINGE WINDER NOTIFIED. NOTIFIED. DAUGHTER NOTIFIED. POST FALL ASSESSMENT COMPLETED PER PROTOCOL. EVENT REPORTED TO ONCOMING RN DURING SHIFT REPORT.
[2018-12-27 20:00] VITALS: BP 140/66
--- NOTE | 2018-12-27 23:40 | NUR ---
NOTIFIED PROVIDER OF BP NO ORDERS FOR NOW. WILL MONITOR. PATIENT RESTING COMFORTABLEY IN BED. FALL PRECAUSIONS IN PLACE.
[2018-12-28] VITALS: BP 163/93
--- NOTE | 2018-12-28 02:15 | NUR ---
PATIENT IS ALERT TO SELF. PATIENT IS A FALL RISK PATIENT IS RESTING COMFORTABLEY IN BED. WCM. PATIENT IS INCONTIENT SOMETIME CAN USE THE URINAL. PATIENT HAS NOT BEEN IMPULSIVE THIS SHIFT BUT HE CAN BE AT TIMES. PATIENT IS ON ROOM AIR. PATIENT DEINES PAIN. PATIENTS LBM WAS THE . PATIENT IS NECKTER THICK LIQUIDS. PATIENT TAKE MEDS CRUSHED. PATIENT IS PENDING DISCHARGE TODAY BACK TO FACILITY. WCM. PATIENT IS PROGRESSING TO GOALS.
[2018-12-28 04:00] VITALS: BP 163/93
[2018-12-28 08:38] VITALS: BP 163/93
[2018-12-28 08:40] VITALS: BP 154/94
[2018-12-28 11:23] LABS: HEMATOCRIT 32.5 % (42.0-52.0); HEMOGLOBIN 10.5 gm/dL (14.0-18.0); MCH 27.3 pg (26.0-34.0); MCHC 32.3 g/dL (28.0-37.0); MCV 84.4 fL (80.0-100.0); PLATELET COUNT 484 thou/uL (150-400); RBC 3.85 mil/uL (4.50-6.00); RDW 16.2 % (10.5-14.5); WBC 29.8 thou/uL (4.0-11.0)
[2018-12-28 11:31] LABS: CALCIUM 8.6 mg/dL (8.5-10.1); CREATININE 1.3 mg/dL (0.7-1.3); POTASSIUM 4.7 mmol/L (3.5-5.1)
[2018-12-28] MEDS ORDERED: SEROQUEL 25 MG25 M1 PO (11:50)
[2018-12-28] MEDS ORDERED: PREDNISONE 20 M20 M1 PO (11:50)
[2018-12-28] MEDS ORDERED: AUGMENTIN 875-1 EACH PO (11:50)
[2018-12-28] MEDS ORDERED: PEPCID20 MG PO (11:50)
[2018-12-28] MEDS ORDERED: GABAPENTIN 100100 MG PO (11:50)
[2018-12-28] MEDS ORDERED: ACETAMINOPHEN325 M1 PO (11:50)
[2018-12-28] MEDS ORDERED: ENOXAPARIN30 MG/0.1 SUBQ (11:50)
[2018-12-28 11:56] LABS: ABSOLUTE NEUTROPHILS 27.1 thou/uL (1.4-8.2)
[2018-12-28 11:57] LABS: ANISOCYTOSIS 1+
--- NOTE | 2018-12-28 13:09 | NUR ---
PT ALERT AND ORIENTED TIMES THREE WITH PERIODS OF CONFUSION. VSS, 93%RA, SR ON TELE. PT DENIES PAIN/SOA. PT WORKED FAIR WITH PHYSICAL THERAPY, BUT STILL WEAK. PT TOLERATES MEDS AND MEALS. PLANS TO RETURN TO [facility] THIS AFTERNOON.
[2018-12-28 13:24] VITALS: BP 149/80
--- NOTE | 2018-12-28 14:07 | NUR ---
DISCHARGE NOTE: SW reviewed chart and spoke with nursing and attending physician. Pt is medically stable for discharge back to [facility] today. SW faxed discharge orders/summary [facility] post-acute liaison. Stretcher van transportation scheduled for [id number] per facility's arrangements. Chart copy requested. SW spoke with pt's dtr, Juanis, via phone to provide update and notify of discharge. Pt's dtr is agreeable with discharge plan. Nursing provided with number to call report. No additional SW needs identified at this time, but is available to assist should needs arise.
== END 2018-12-28 15:08 | DRG 870 ==
LOC: ER 22:30 → ICU 23:12 → EROBS 23:12 → ICU 12-18 00:12 → 3W 12-25 14:08
PROVIDERS: Emergency Medicine; Hospitalist; Internal Medicine; Internal Medicine Nephrology; Internal Medicine Pulmonary Disease; Nurse Practitioner Acute Care; ADMIT Internal Medicine
PROC: 0BH17EZ Insertion of Endotracheal Airway into Trachea, Via Natural or Artificial Opening (ICD-10-PCS; principal; 2018-12-18)
PROC: 5A09357 Assistance with Respiratory Ventilation, Less than 24 Consecutive Hours, Continuous Positive Airway Pressure (ICD-10-PCS; principal; 2018-12-18)
PROC: 5A1955Z Respiratory Ventilation, Greater than 96 Consecutive Hours (ICD-10-PCS; principal; 2018-12-18)
PROC: 02HV33Z Insertion of Infusion Device into Superior Vena Cava, Percutaneous Approach (ICD-10-PCS; principal; 2018-12-18)
PROC: 0B9G8ZX Drainage of Left Upper Lung Lobe, Via Natural or Artificial Opening Endoscopic, Diagnostic (ICD-10-PCS; 2018-12-22)
PROC: 0BDG8ZX Extraction of Left Upper Lung Lobe, Via Natural or Artificial Opening Endoscopic, Diagnostic (ICD-10-PCS; 2018-12-22)
DX: A41.9 Sepsis, unspecified organism (principal); J18.9 Pneumonia, unspecified organism; G92 Toxic encephalopathy; E43 Unspecified severe protein-calorie malnutrition; J96.21 Acute and chronic respiratory failure with hypoxia; J96.22 Acute and chronic respiratory failure with hypercapnia; N17.9 Acute kidney failure, unspecified; I42.9 Cardiomyopathy, unspecified; E87.4 Mixed disorder of acid-base balance; J44.1 Chronic obstructive pulmonary disease with (acute) exacerbation; J44.0 Chronic obstructive pulmonary disease with (acute) lower respiratory infection; F03.91 Unspecified dementia, unspecified severity, with behavioral disturbance; M19.90 Unspecified osteoarthritis, unspecified site; G62.9 Polyneuropathy, unspecified; Y95 Nosocomial condition; E78.5 Hyperlipidemia, unspecified; R91.8 Other nonspecific abnormal finding of lung field; N18.3 Chronic kidney disease, stage 3 (moderate); I12.9 Hypertensive chronic kidney disease with stage 1 through stage 4 chronic kidney disease, or unspecified chronic kidney disease; D47.3 Essential (hemorrhagic) thrombocythemia; E87.5 Hyperkalemia; R65.20 Severe sepsis without septic shock; F17.210 Nicotine dependence, cigarettes, uncomplicated; Z79.82 Long term (current) use of aspirin; Z68.24 Body mass index [BMI] 24.0-24.9, adult; Z79.52 Long term (current) use of systemic steroids; Z79.899 Other long term (current) drug therapy; Z23 Encounter for immunization
CPT/HCPCS: 10078; 10779; 10879